=== PATIENT | male | born 1965 | race Caucasian/White ===

== ENCOUNTER 2021-05-02 17:06 | Emergency (ER) | payer OTHER ==
[~2021-05-02] VITALS: Ht 188 cm; Wt 100.0 kg
--- NOTE | 2021-05-02 17:18 | NUR ---
PT BIB EMS FROM HOME DUE TO FOCAL SEIZURE AND ALOC FOR AN EXTENDED AMOUNT OF TIME. PER EMS THE SEIZURE HAPPENED AROUND 1530 AND PT STILL CONFUSED UPON ARRIVAL TO [facility]. 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 UNK WHAT IT IS CALLED. PT ALERT TO PERSON, PLACE AND SITUATION BUT NOT TIME. PT ALSO DOES NOT RECALL THE EVENT AND SEEMS CONFUSED ABOUT WHAT HOSPITAL HE IS AT BUT KNOWS HE IS IN [place]. PT'S ONLY PHYSICAL COMPLAINT IS WEAKNESS.
[2021-05-02 17:38] LABS: BASOPHILS % (AUTO) 1 % (0-1); EOSINOPHILS % (AUTO) 4 % (1-7); LYMPHOCYTES % (AUTO) 15 % (22-44); MEAN CORPUSCULAR HEMOGLOBIN 33.9 pg (27.5-34.5); MEAN CORPUSCULAR HGB CONC 33.9 g/dL (33.2-36.2); MEAN PLATELET VOLUME 9.6 fL (7.4-10.4); MONOCYTES % (AUTO) 9 % (2-9); NEUTROPHILS % (AUTO) 71 % (42-75); PLATELET COUNT 193 x10^3/uL (130-400); RED CELL DISTRIBUTION WIDTH 13.4 % (9.4-14.8)
[2021-05-02 17:48] LABS: ALBUMIN 3.5 g/dL (3.4-5.0); ANION GAP 3 mmol/L (5-15); CALCIUM 8.4 mg/dL (8.5-10.1); CHLORIDE 110 mmol/L (98-107)
[2021-05-02 17:51] LABS: ALANINE AMINOTRANSFERASE 28 U/L (12-78); ALKALINE PHOSPHATASE 57 U/L (45-117); BILIRUBIN,TOTAL 0.5 mg/dL (0.2-1.0); CREATININE 1.18 mg/dL (0.7-1.3)
--- NOTE | 2021-05-02 18:08 | NUR ---
PT PLACED ON 2 PM O2 VIA NC DUE TO SPO2 DECREASING TO 88% ON RA, PT AWAKE.
[2021-05-02] MEDS ORDERED: LORazepam 2 MG/ML, 1ML IVPush ONE (18:30)
[2021-05-02] MEDS ORDERED: LORazepam 2 MG/ML, 1ML ONE (18:37)
--- NOTE | 2021-05-02 20:01 | NUR ---
REPORT RECIEVED FROM BALTAZAR FERNANDES
[2021-05-02 20:06] VITALS: BP 106/61
== END 2021-05-02 20:27 | disposition home or self-care (01) ==
LOC: ED 18:05
DX: G40.802 Other epilepsy, not intractable, without status epilepticus (principal); I10 Essential (primary) hypertension; E78.00 Pure hypercholesterolemia, unspecified
CPT/HCPCS: 36415; 80053; 85025; 93005; 96374; 99284; J2060